=== PATIENT | female | born 1975 | race Caucasian/White ===

== ENCOUNTER → 2019-06-09 08:52 | Outpatient (BNVA) | payer MEDICAID, SELFPAY | PROVIDERS: Family Provider Nurse Practitioner; Visit Provider Social Worker Clinical | DX: F33.2 Major depressive disorder, recurrent severe without psychotic features (principal) | CPT/HCPCS: 90834 ==

== ENCOUNTER → 2019-06-23 09:49 | Outpatient (BNVA) | payer MEDICAID, SELFPAY | PROVIDERS: Family Provider Nurse Practitioner; Visit Provider Counselor Professional | DX: F33.2 Major depressive disorder, recurrent severe without psychotic features (principal) | CPT/HCPCS: 90834 ==

== ENCOUNTER → 2019-07-01 11:09 | Outpatient (BNVA) | payer MEDICAID, SELFPAY | PROVIDERS: Family Provider Nurse Practitioner; Visit Provider Nurse Practitioner | DX: R05 Cough (principal); R50.9 Fever, unspecified; Q32.4 Other congenital malformations of bronchus | CPT/HCPCS: 71046; 85025; 87804 ==

== ENCOUNTER → 2019-07-12 09:50 | Outpatient (BNVA) | payer MEDICAID, SELFPAY | PROVIDERS: Family Provider Nurse Practitioner; Visit Provider Counselor Professional | DX: F43.12 Post-traumatic stress disorder, chronic (principal) | CPT/HCPCS: 90834 ==

== ENCOUNTER → 2019-07-21 08:55 | Outpatient (BNVA) | payer MEDICAID, SELFPAY | PROVIDERS: Family Provider Nurse Practitioner; Visit Provider Counselor Professional | DX: F43.12 Post-traumatic stress disorder, chronic (principal) | CPT/HCPCS: 90834 ==

== ENCOUNTER → 2019-07-28 10:08 | Outpatient (BNVA) | payer MEDICAID, SELFPAY | PROVIDERS: Family Provider Nurse Practitioner; Visit Provider Counselor Professional | DX: F43.12 Post-traumatic stress disorder, chronic (principal) | CPT/HCPCS: 90834 ==

== ENCOUNTER → 2019-08-04 10:36 | Outpatient (BNVA) | payer MEDICAID, SELFPAY | PROVIDERS: Family Provider Nurse Practitioner; PCP Nurse Practitioner; Visit Provider Counselor Professional | DX: F43.12 Post-traumatic stress disorder, chronic (principal) | CPT/HCPCS: 90834 ==

== ENCOUNTER 2019-08-11 08:12 | Outpatient (CLI) | payer MEDICAID, SELFPAY ==
--- NOTE | 2019-08-11 08:15 | CT_ITS ---
WS: [id number] CT CHEST WITHOUT INTRAVENOUS CONTRAST HISTORY: shortness of breath TECHNIQUE: Contiguous axial imaging performed on the thorax. High resolution imaging submitted. Coron al and sagittal reformats are submitted. All CT scans at [facility] use at least one of t hese dose optimization techniques: automated exposure control; mA and/or kV adjustment per patient si ze (includes targeted exams where dose is matched to clinical indication); or iterative reconstructio n. CONTRAST: None DLP: 1500.67 mGycm COMPARISON: 07/12/2018 Lungs and central airway: Mildly hyperexpanded lungs. Motion artifact due to breathing. There is some very mild thickening of the interstitium throughout the lungs bilaterally. Greatest interstitial thi ckening in the periphery RIGHT lower lobe. During expiration is volume loss throughout both lungs. Rosy cency in the LEFT lung also decreases in size. No bronchiectasis. No nodule or pneumonia. Again noted is a lucency involving the superior segment LEFT lower lobe related to air trapping. Pleura: Normal. No pleural effusion. Heart and pericardium: Normal size heart. No pericardial effusion. Mediastinum and patricio: Small mediastinal and hilar lymph nodes. No adenopathy. Vessels: Normal size aortic and pulmonary artery. No coronary artery calcifications. Chest wall and lower neck: No soft tissue masses. Upper abdomen: Marked enlargement of the spleen measuring 20.7 cm in length. Previously described on a CT from 10/09/2013. Visualized liver is negative. No adrenal mass. Osseous structures: No osteoblastic or osteolytic bone disease. Remote rib fractures in the lateral R IGHT mid thorax. CT/CT chest wo con [id number] IMPRESSION: 1. Mild interstitial thickening throughout both lungs, similar to 07/12/2018. P robably related to smoking history. No discrete pneumonia. 2. No significant air trapping. There is still a change in volume of the lucen t portion of the LEFT lung during inspiration and expiration. 3. 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 No interval change. 4. Marked splenomegaly, similar to 2013.
== END 2019-08-11 08:13 | disposition home or self-care (01) ==
LOC: RADWPI 08:18
PROVIDERS: Family Provider Nurse Practitioner; PCP Nurse Practitioner; Visit Provider Internal Medicine Critical Care Medicine
DX: R06.02 Shortness of breath (principal); R16.1 Splenomegaly, not elsewhere classified
CPT/HCPCS: 71250; 90834

== ENCOUNTER → 2019-08-18 08:55 | Outpatient (BNVA) | payer MEDICAID, SELFPAY | PROVIDERS: Family Provider Nurse Practitioner; PCP Nurse Practitioner; Visit Provider Counselor Professional | DX: F43.12 Post-traumatic stress disorder, chronic (principal) | CPT/HCPCS: 90834 ==

== ENCOUNTER → 2019-08-25 08:37 | Outpatient (BNVA) | payer MEDICAID, SELFPAY | PROVIDERS: Family Provider Nurse Practitioner; PCP Nurse Practitioner; Visit Provider Counselor Professional | DX: F43.12 Post-traumatic stress disorder, chronic (principal) | CPT/HCPCS: 90834 ==

== ENCOUNTER → 2019-09-07 08:04 | Outpatient (BNVA) | payer MEDICAID, SELFPAY | PROVIDERS: Family Provider Nurse Practitioner; PCP Nurse Practitioner; Visit Provider Counselor Professional | DX: F43.12 Post-traumatic stress disorder, chronic (principal) | CPT/HCPCS: 90834 ==

== ENCOUNTER → 2019-09-16 08:12 | Outpatient (BNVA) | payer MEDICAID, SELFPAY | PROVIDERS: Family Provider Nurse Practitioner; PCP Nurse Practitioner; Visit Provider Counselor Professional | DX: F43.12 Post-traumatic stress disorder, chronic (principal) | CPT/HCPCS: 90834 ==

== ENCOUNTER → 2019-09-20 08:45 | Outpatient (BNVA) | payer MEDICAID, SELFPAY | PROVIDERS: Family Provider Nurse Practitioner; PCP Nurse Practitioner; Visit Provider Counselor Professional | DX: F43.12 Post-traumatic stress disorder, chronic | CPT/HCPCS: 90834 ==

== ENCOUNTER → 2019-09-28 08:07 | Outpatient (BNVA) | payer MEDICAID, SELFPAY | PROVIDERS: Family Provider Nurse Practitioner; PCP Nurse Practitioner; Visit Provider Counselor Professional | DX: F43.12 Post-traumatic stress disorder, chronic (principal) | CPT/HCPCS: 90834 ==

== ENCOUNTER → 2019-10-05 08:12 | Outpatient (BNVA) | payer MEDICAID, SELFPAY | PROVIDERS: Family Provider Nurse Practitioner; PCP Nurse Practitioner; Visit Provider Counselor Professional | DX: F43.12 Post-traumatic stress disorder, chronic (principal) | CPT/HCPCS: 90832 ==

== ENCOUNTER → 2019-10-12 08:24 | Outpatient (BNVA) | payer MEDICAID, SELFPAY | PROVIDERS: Family Provider Nurse Practitioner; PCP Nurse Practitioner; Visit Provider Counselor Professional | DX: F43.12 Post-traumatic stress disorder, chronic (principal) | CPT/HCPCS: 90834 ==

== ENCOUNTER 2019-10-17 09:06 | Outpatient (CLI) | payer MEDICAID, SELFPAY ==
--- NOTE | 2019-10-17 10:19 | PFTS_ITS ---
Date of Study:10/17/19 Date of Dictation: MECHANICS: Forced vital capacity (FVC) is normal. Forced expiratory volume in one second (FEV1) is normal. FEV1/FVC is normal. FLOW VOLUME LOOP: Hesitation during the performance of forced expiratory maneuver. There is evidence of hesitation LUNG VOLUMES: Total lung capacity (TLC) is normal. Residual volume (RV) is normal. DIFFUSING CAPACITY FOR CARBON MONOXIDE: Normal. INTERPRETATION: The pulmonary function tests are normal. Lung volumes are normal Gas exchange (DLCO) is normal. MTDD
== END 2019-10-17 09:07 | disposition home or self-care (01) ==
LOC: RT 09:10
PROVIDERS: PCP Nurse Practitioner; Visit Provider Internal Medicine Critical Care Medicine
DX: R06.02 Shortness of breath (principal)
CPT/HCPCS: 94010; 94726; 94729

== ENCOUNTER → 2019-10-26 07:58 | Outpatient (BNVA) | payer MEDICAID, SELFPAY | PROVIDERS: PCP Nurse Practitioner; Visit Provider Counselor Professional | DX: F43.12 Post-traumatic stress disorder, chronic (principal) | CPT/HCPCS: 90834 ==

== ENCOUNTER → 2019-11-02 07:47 | Outpatient (BNVA) | payer MEDICAID, SELFPAY | PROVIDERS: PCP Nurse Practitioner; Visit Provider Counselor Professional | DX: F43.12 Post-traumatic stress disorder, chronic (principal) | CPT/HCPCS: 90834 ==

== ENCOUNTER → 2019-11-10 08:35 | Outpatient (BNVA) | payer MEDICAID, SELFPAY | PROVIDERS: PCP Nurse Practitioner; Visit Provider Counselor Professional | DX: F43.12 Post-traumatic stress disorder, chronic (principal) | CPT/HCPCS: 90834 ==

== ENCOUNTER → 2019-11-16 14:09 | Outpatient (BNVA) | payer MEDICAID, SELFPAY | PROVIDERS: PCP Nurse Practitioner; Visit Provider Nurse Practitioner | DX: J06.9 Acute upper respiratory infection, unspecified (principal); Q32.4 Other congenital malformations of bronchus; D58.0 Hereditary spherocytosis; M54.5 Low back pain; Z12.4 Encounter for screening for malignant neoplasm of cervix; Z12.39 Encounter for other screening for malignant neoplasm of breast; E66.9 Obesity, unspecified | CPT/HCPCS: 80053; 80061; 81000; 84443; 85025; 88175 ==

== ENCOUNTER → 2019-11-30 08:13 | Outpatient (BNVA) | payer MEDICAID, SELFPAY | PROVIDERS: PCP Nurse Practitioner; Visit Provider Counselor Professional | DX: F43.12 Post-traumatic stress disorder, chronic (principal) | CPT/HCPCS: 90834 ==

== ENCOUNTER → 2019-12-08 10:06 | Outpatient (BNVA) | payer MEDICAID, SELFPAY | PROVIDERS: PCP Nurse Practitioner; Visit Provider Counselor Professional | DX: F60.3 Borderline personality disorder (principal); F43.12 Post-traumatic stress disorder, chronic | CPT/HCPCS: 90834 ==

== ENCOUNTER → 2019-12-15 08:57 | Outpatient (BNVA) | payer MEDICAID, SELFPAY | PROVIDERS: PCP Nurse Practitioner; Visit Provider Counselor Professional | DX: F60.3 Borderline personality disorder (principal); F43.12 Post-traumatic stress disorder, chronic | CPT/HCPCS: 90834 ==

== ENCOUNTER 2019-12-19 08:47 | Outpatient (CLI) | payer MEDICAID, SELFPAY ==
--- NOTE | 2019-12-19 09:00 | MM_ITS ---
WS: [id number] BILATERAL DIGITAL SCREENING MAMMOGRAPHY WITH CAD CLINICAL INFORMATION: screen breast HISTORY: Screening mammogram. No current complaints. COMPARISON: January 21, 2015 TECHNIQUE: Bilateral CC and MLO views. FINDINGS: Scattered fibroglandular densities bilaterally. No suspicious focal mass, asymmetry, calcifications, or architectural distortion. No evidence of malignancy. Vascular calcification MM/[place] [id number] IMPRESSION: BI-RADS: 2-Benign FOLLOW UP: 1 Year Follow-up Recommend return to annual screening mammography.
== END 2019-12-19 08:48 | disposition home or self-care (01) ==
LOC: RADSHAW 08:48
PROVIDERS: PCP Nurse Practitioner; Visit Provider Nurse Practitioner
DX: Z12.31 Encounter for screening mammogram for malignant neoplasm of breast (principal)
CPT/HCPCS: 77067

== ENCOUNTER → 2019-12-22 08:59 | Outpatient (BNVA) | payer MEDICAID, SELFPAY | PROVIDERS: PCP Nurse Practitioner; Visit Provider Counselor Professional | DX: F43.12 Post-traumatic stress disorder, chronic (principal); F60.3 Borderline personality disorder | CPT/HCPCS: 90834 ==

== ENCOUNTER → 2020-01-04 09:17 | Outpatient (BNVA) | payer MEDICAID, SELFPAY | PROVIDERS: PCP Nurse Practitioner; Visit Provider Counselor Professional | DX: F60.3 Borderline personality disorder (principal); F43.12 Post-traumatic stress disorder, chronic | CPT/HCPCS: 90834 ==

== ENCOUNTER → 2020-01-11 08:54 | Outpatient (BNVA) | payer MEDICAID, SELFPAY | PROVIDERS: PCP Nurse Practitioner; Visit Provider Counselor Professional | DX: F60.3 Borderline personality disorder (principal) | CPT/HCPCS: 90834 ==

== ENCOUNTER → 2020-01-19 07:48 | Outpatient (BNVA) | payer MEDICAID, SELFPAY | PROVIDERS: PCP Nurse Practitioner; Visit Provider Counselor Professional | DX: F43.12 Post-traumatic stress disorder, chronic (principal); F60.3 Borderline personality disorder | CPT/HCPCS: 90834 ==

== ENCOUNTER → 2020-01-24 09:17 | Outpatient (BNVA) | payer MEDICAID, SELFPAY | PROVIDERS: PCP Nurse Practitioner; Visit Provider Counselor Professional | DX: F43.12 Post-traumatic stress disorder, chronic (principal); F60.3 Borderline personality disorder | CPT/HCPCS: 90834 ==

== ENCOUNTER → 2020-01-30 08:33 | Outpatient (BNVA) | payer MEDICAID, SELFPAY | PROVIDERS: PCP Nurse Practitioner; Visit Provider Counselor Professional | DX: F43.12 Post-traumatic stress disorder, chronic (principal); F60.3 Borderline personality disorder | CPT/HCPCS: 90834 ==

== ENCOUNTER → 2020-02-07 08:29 | Outpatient (BNVA) | payer MEDICAID, SELFPAY | PROVIDERS: PCP Nurse Practitioner; Visit Provider Counselor Professional | DX: F43.12 Post-traumatic stress disorder, chronic (principal); F60.3 Borderline personality disorder | CPT/HCPCS: 90834 ==

== ENCOUNTER → 2020-02-14 08:32 | Outpatient (BNVA) | payer MEDICAID, SELFPAY | PROVIDERS: PCP Nurse Practitioner; Visit Provider Counselor Professional | DX: F43.12 Post-traumatic stress disorder, chronic (principal) | CPT/HCPCS: 90834 ==

== ENCOUNTER → 2020-02-21 08:21 | Outpatient (BNVA) | payer MEDICAID, SELFPAY | PROVIDERS: PCP Nurse Practitioner; Visit Provider Counselor Professional | DX: F43.12 Post-traumatic stress disorder, chronic (principal) | CPT/HCPCS: 90834 ==

== ENCOUNTER → 2020-02-28 09:07 | Outpatient (BNVA) | payer MEDICAID, SELFPAY | PROVIDERS: PCP Nurse Practitioner; Visit Provider Counselor Professional | DX: F43.12 Post-traumatic stress disorder, chronic (principal) | CPT/HCPCS: 90834 ==

== ENCOUNTER → 2020-03-08 07:55 | Outpatient (BNVA) | payer MEDICAID, SELFPAY | PROVIDERS: PCP Nurse Practitioner; Visit Provider Counselor Professional | DX: F43.12 Post-traumatic stress disorder, chronic (principal) | CPT/HCPCS: 90834 ==

== ENCOUNTER → 2020-03-13 08:31 | Outpatient (BNVA) | payer MEDICAID, SELFPAY | PROVIDERS: PCP Nurse Practitioner; Visit Provider Counselor Professional | DX: F43.12 Post-traumatic stress disorder, chronic (principal) | CPT/HCPCS: 90834 ==

== ENCOUNTER → 2020-03-22 15:59 | Outpatient (BNVA) | payer MEDICAID, SELFPAY | PROVIDERS: PCP Nurse Practitioner; Visit Provider Nurse Practitioner | DX: Z20.828 Contact with and (suspected) exposure to other viral communicable diseases (principal); J42 Unspecified chronic bronchitis; R09.89 Other specified symptoms and signs involving the circulatory and respiratory systems; J06.9 Acute upper respiratory infection, unspecified | CPT/HCPCS: 80053; 85025; 87635 ==

== ENCOUNTER → 2020-03-27 08:10 | Outpatient (BNVA) | payer MEDICAID, SELFPAY | PROVIDERS: PCP Nurse Practitioner; Visit Provider Counselor Professional | DX: F43.12 Post-traumatic stress disorder, chronic (principal) | CPT/HCPCS: 90834 ==

== ENCOUNTER → 2020-04-30 13:55 | Outpatient (BNVA) | payer MEDICAID, SELFPAY | PROVIDERS: PCP Nurse Practitioner; Visit Provider Nurse Practitioner Family | DX: Z20.828 Contact with and (suspected) exposure to other viral communicable diseases (principal); J06.9 Acute upper respiratory infection, unspecified | CPT/HCPCS: 87635 ==

== ENCOUNTER → 2020-06-12 07:56 | Outpatient (BNVA) | payer MEDICAID, SELFPAY | PROVIDERS: PCP Nurse Practitioner; Visit Provider Counselor Professional | DX: F60.3 Borderline personality disorder (principal) | CPT/HCPCS: 90834 ==

== ENCOUNTER → 2020-07-04 08:09 | Outpatient (BNVA) | payer MEDICAID, SELFPAY | PROVIDERS: PCP Nurse Practitioner; Visit Provider Counselor Professional | DX: F60.3 Borderline personality disorder (principal) | CPT/HCPCS: 90834 ==

== ENCOUNTER → 2020-07-11 08:43 | Outpatient (BNVA) | payer MEDICAID, SELFPAY | PROVIDERS: PCP Nurse Practitioner; Visit Provider Counselor Professional | DX: F60.3 Borderline personality disorder (principal) | CPT/HCPCS: 90834 ==

== ENCOUNTER → 2020-07-18 08:09 | Outpatient (BNVA) | payer MEDICAID, SELFPAY | PROVIDERS: PCP Nurse Practitioner; Visit Provider Counselor Professional | DX: F60.3 Borderline personality disorder (principal) | CPT/HCPCS: 90834 ==

== ENCOUNTER → 2020-08-15 09:48 | Outpatient (BNVA) | payer MEDICAID, SELFPAY | PROVIDERS: PCP Nurse Practitioner; Visit Provider Counselor Professional | DX: F60.3 Borderline personality disorder (principal) | CPT/HCPCS: 90834 ==

== ENCOUNTER 2020-08-27 16:02 | Emergency (ER) | payer MEDICAID, SELFPAY ==
[2020-08-27 16:08] VITALS: BP 126/72; PULSE 98; RESP 16; TEMP 36.8; O2SAT 99; BMI 26.4
--- NOTE | 2020-08-27 16:43 | ED_ITS ---
HPI - Wound/Laceration General: Chief Complaint: Wound/Laceration Stated Complaint: R. Foot Injury Time Seen by Provider: 08/27/20 16:12 Source: patient Mode of arrival: ambulatory Limitations: no limitations History of Present Illness: HPI narrative: Patient is a 44-year-old female who presents to ED today for evaluation of a laceration to her right foot that she sustained just prior to arrival after she cut it on a metal door in her shop. Last tetanus unknown. Bleeding controlled. No other complaints at this time. Onset (ago): hour(s) Extremity Location: Right: foot Place: home Patient tetanus UTD: No Context: accidental Associated symptoms: Reports no associated symptoms; Denies fever(s) Review of Systems Const: Denies: fever(s) Musc: Reports: extremity pain (R foot laceration); Denies: extremity swelling Skin/Breast: Reports: other (laceration R foot) Neuro: Denies: numbness in extremities or sensory changes PFSH ED PFSH: Medical History Chronic post-traumatic stress disorder (PTSD) Congenital spherocytic hemolytic anemia Current smoker Endometriosis Surgical History History of appendectomy History of cholecystectomy History of pelvic surgery endometriosis Family History Other Cancer Diabetes Heart disease Social History Smoking and tobacco status: current every day smoker cigarettes Packs smoked per day: 1 Years cigarettes smoked: 30 Quit status (tobacco): considering quitting Second hand smoke exposure: Yes Smoking risk assessment/counseling performed?: Yes Alcohol intake: never Desire information about alcohol rehabilitation?: No Counseling given: No Desire information about substance/drug rehabilitation?: No Counseling given: No Lives independently: Yes Household members: significant other Housing: House Marital status: Number of children: 1 service: No Current occupational status: unemployed Pets and animals: Yes Pets & animals: cat(s) and dog(s) History of recent travel: No Current gender identity: Female Physical Exam Const: COMMON NORMALS: no acute distress, average body habitus, patient oriented x3, no limitations, healthy appearing, alert and well nourished GENERAL APPEARANCE: cooperative Extremity: NARRATIVE EXTREMITY EXAM: 2.5cm V shaped laceration to R lateral dorsal foot; no bleeding; NV intact Neuro: COMMON NORMALS: patient oriented x3, moves all extremities, no focal motor deficits, no sensory deficits noted and gait normal SENSORIUM/ORIENTATION: Yes alert Skin: NARRATIVE SKIN EXAM: see extremity assessment Procedures Laceration Laceration 1: Site: lower extremity (foot) Side (If applicable): right Size (cm): 2.5 Description: stellate and flap Depth: simple, single layer Local Anesthetic: lidocaine 1% Amount of anesthesia used (mL): 2.0 Pre-repair: wound explored and irrigated extensively Skin layer closed with: vicryl (there were no nylon sutures other than a 6-0 in the ED) Size (cm): 5-0 Number of sutures: 7 Technique: simple, interrupted Course Vital Signs: Vital signs: Vital Signs Temperature 98.2 F 08/27/20 16:08 Pulse Rate 98 08/27/20 16:08 Respiratory Rate 16 08/27/20 16:08 Blood Pressure 126/72 08/27/20 16:08 Pulse Oximetry 99 08/27/20 16:08 MDM - Wound/Laceration MDM Narrative: Medical decision making narrative: Tetanus updated. Repaired with vicryl because there were no nylon sutures larger than a 6-0 in the ED. She was made aware these are technically absorbable but I want them cut out in one week. Wound care discussed. Discharge Plan Discharge Patient Disposition: Home Clinical Impression: Laceration of foot, right Qualifiers: Encounter type: initial encounter Qualified Code(s): S91.311A - Laceration without foreign body, right foot, initial encounter Condition: Stable Prescriptions: No Action fluticasone propionate [Flonase Allergy Relief] 50 mcg/actuation spray,suspension 1 spray intranasal BID 30 Days Qty: 15.8 RF: 6 folic acid 400 mcg tablet 1.6 mg PO DAILY RF: 0 vitamin E (dl, acetate) 400 unit capsule 400 unit PO DAILY RF: 0 potassium 99 mg tablet 99 mg PO DAILY RF: 0 mecobalamin (vitamin B12) 1,000 mcg tablet,disintegrating 1,000 mcg SUBLINGUAL DAILY RF: 0 biotin 1 mg capsule 1 mg PO DAILY RF: 0 cholecalciferol (vitamin D3) 25 mcg (1,000 unit) capsule 25 mcg PO DAILY RF: 0 Spiriva with HandiHaler 18 mcg capsule, w/inhalation device 1 cap INHALATION DAILY Qty: 60 RF: 6 albuterol sulfate 2.5 mg /3 mL (0.083 %) solution for nebulization 2.5 mg inhalation Q4H PRN (Reason: shortness of breath or wheezing) Qty: 75 RF: 2 budesonide [Pulmicort] 0.5 mg/2 mL suspension for nebulization 0.5 mg inhalation BID Qty: 60 RF: 0 albuterol sulfate [ProAir HFA] 90 mcg/actuation HFA aerosol inhaler 2 puff inhalation Q6H PRN (Reason: shortness of breath or wheezing) Qty: 8.5 RF: 1 promethazine-DM 6.25-15 mg/5 mL syrup 5 ml PO Q6H PRN (Reason: cough) Qty: 473 RF: 0 Discharge Orders: Discharge ED (Routine); Ordered 08/27/20 Ordered By: Velia Flores Referrals: Elkin Hurley, [employer] ADMINISTRATOR-[facility] [Primary Care Provider] - Patient Instructions: Suture Care (ED), Laceration (ED) Activity Restrictions/Additional Instructions: Keep wound/laceration clean with warm soap and water twice daily. Monitor for signs of infection such as redness, swelling, increased pain, or drainage. Please seek medical re-evaluation if these occur. As we discussed your sutures are technically absorbable but I want them cut out in 7 days. Coding Level of Care Code ED Professional Wrestler for Andrea Fwd Exam Expanded Problem Focused
[2020-08-27] MEDS: tetanus-dipt-pertussis 0.5 mL SDV IM (17:20)
--- NOTE | 2020-09-03 12:13 | PC.NURSE ---
Patient returned to the ER to have sutures removed. Sutures removed at this time.
== END 2020-08-27 17:24 | disposition home or self-care (01) ==
PROVIDERS: Emergency Provider Physician Assistant; PCP Nurse Practitioner
DX: S91.311A Laceration without foreign body, right foot, initial encounter (principal); W26.8XXA Contact with other sharp object(s), not elsewhere classified, initial encounter; F17.210 Nicotine dependence, cigarettes, uncomplicated; Z23 Encounter for immunization
CPT/HCPCS: 12001; 90471; 90715; 99283

== ENCOUNTER 2020-09-04 09:30 | Outpatient (CLI) | payer MEDICAID, SELFPAY | END 2020-09-04 09:31 | disposition home or self-care (01) | LOC: LAB 07-18 14:51 | PROVIDERS: PCP Nurse Practitioner; Visit Provider Nurse Practitioner | DX: R00.2 Palpitations (principal) | CPT/HCPCS: 80053; 84443; 85025 ==

== ENCOUNTER → 2020-09-12 08:00 | Outpatient (BNVA) | payer MEDICAID, SELFPAY | PROVIDERS: PCP Nurse Practitioner; Visit Provider Counselor Professional | DX: F43.12 Post-traumatic stress disorder, chronic (principal) | CPT/HCPCS: 90834 ==

== ENCOUNTER → 2020-09-13 10:50 | Outpatient (BNVA) | payer MEDICAID, SELFPAY | PROVIDERS: PCP Nurse Practitioner; Visit Provider Nurse Practitioner | DX: L03.115 Cellulitis of right lower limb (principal); L02.611 Cutaneous abscess of right foot | CPT/HCPCS: 73630; 85025 ==

== ENCOUNTER → 2020-09-19 08:01 | Outpatient (BNVA) | payer MEDICAID, SELFPAY | PROVIDERS: PCP Nurse Practitioner; Visit Provider Counselor Professional | DX: F43.12 Post-traumatic stress disorder, chronic (principal) | CPT/HCPCS: 90834 ==

== ENCOUNTER 2020-09-25 10:19 | Outpatient (CLI) | payer MEDICAID, SELFPAY ==
--- NOTE | 2020-09-26 12:17 | ONC CON_ITS ---
Dr. Espinosa New Patient Note Patient: Tabitha Diamond Unit #: [id number]: 1975 Dicatated By: Gus Espinosa M.D.Date of Visit: September 25, 2020 Onc MED New Patient/Consult Referring Physician: Lee Ann Pollard Chief Complaint: Hereditary spherocytosis. History of Present Illness: This is a 44-year-old woman with hereditary spherocytosis. She apparently was diagnosed with the hereditary spherocytosis in infancy, as her father and paternal grandfather were already known to be affected. She has been managed adequately with folate supplementation, maintaining hemoglobin levels in the range of 9 to 10 g. However, she was seen here by Dr. Garcia in December 2011 when her hemoglobin had dropped to 8.3 g. At the time she also had mild hyperbilirubinemia. According to Dr. Garcia's notes she had not been taking her folate on a consistent basis. During subsequent follow-up, her hemoglobin recovered to baseline and it has since then remained stable in that range of 9 to 10 g. At some point, I think around 2013, she did require cholecystectomy. She has never been transfused. She is seen now in regard to the spherocytosis. On her CBC from 09/13/2020 her hemoglobin had declined somewhat, to 9.7 g compared to 10.4 g earlier in the month and to 11.6 g in March 2020. Her red cell indices were normal. The white blood cell count was slightly elevated at 11,300 and the platelet count was normal at 261,000. She has been faithful with her folic acid supplementation, currently taking 4 tablets of an 800 mcg [id number] preparation daily. She also has been taking vitamin E and biotin supplements daily. She complains that her energy is not very good. Her activity recently has been limited due to a right foot injury, but she otherwise is able to do light work. Her ECOG score is 1. Her appetite is not particularly good. She says she eats only once a day, but she has gained weight. She does not have fever, night sweats, or hot flashes. She does complain of shortness of breath with activity and with lying down. She has been seeing Dr. Pablo. 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 She has on treatment with albuterol, tiotropium bromide, and budesonide. She also reports having chronic sinus congestion/drainage and chronic cough. She does not complain of chest pain. She sometimes has nausea. She has no other GI complaints. She has a history of urinary tract infections, and she also has some mild stress incontinence. She has chronic lower back pain. She has migraine headaches. She says her hands tend to go to sleep easily. She has no other focal neurologic symptoms. Past Medical History: Her medical history includes congenital segmental emphysema syndrome, endometriosis, hereditary spherocytosis, and post traumatic stress disorder/depression. Past Surgical History: Her surgical/procedural history includes cholecystectomy, lysis of adhesions, right ovaian biopsy which was benign in 2009, and appendectomy in 1995. Medications: Albuterol Sulfate 1 Inhalation (of (2.5 mg/3ml) 0.083%) Nebulization solution Inhalation q 4 hours, Albuterol Sulfate (sensor) 2 Puff(s) (of 108 (90 base) mcg/act) Aerosol Powder, Breath Activated Inhalation q 6 hours PRN, Biotin 1 (1 mg) Capsule Oral daily, Budesonide 1 Inhalation (of 0.5 mg/2mL) Suspension Inhalation b.i.d., Flonase 1 Bath(s) (of 50 mcg/act) Suspension Nasal b.i.d., Folic Acid 1 (800 mcg) Tablet Oral daily, Promethazine-DM 5 mL (of 6.25-15 mg/5mL) Syrup Oral q 6 hours, Tiotropium [place] Monohydrate 1 Inhalation (of 18 mcg) Capsule Inhalation daily, Vitamin E 1 (400 Units) Capsule Oral daily Allergies: Cephalexin, Erythromycin, and Penicillin. Social History: Ms. Diamond is . She has 1 adopted child. She is currently not able to work. She had previously worked in a [employer]. She has a history of smoking 1 pack of cigarettes daily beginning at age 14. She had stopped smoking for a period of 9 years, but she then started again and smoked up to 3 packs of cigarettes daily. She now smokes 1/2 pack/day or less. She currently does not drink alcohol. She has had some alcohol use in the past, but never heavy. Family History: Her paternal grandfather, her father, a half-brother, and a half-sister all have hereditary spherocytosis. Father is still living at age 63. She does not know about her mother. Her paternal grandfather also had heart disease and of pancreatic cancer. Her paternal grandmother and maternal grandmother both had breast cancer, and her maternal grandfather had heart disease. Review Of Symptoms: Constitutional - Her energy is not good. She has been feeling significantly more tired lately. She has activity restrictions related to an injury to her right foot that occurred about 1 month ago. Prior to that she was doing moderate to heavy work around the house and in her woodshop. Her appetite is good and her weight is up some. No fever, night sweats, or hot flashes. ECOG score is 1, Eyes - She has had some decline in visual acuity, ENMT - She has some hearing loss. No tinnitus. She always has sinus congestion/drainage. No mouth sores. No sore throat or difficulty swallowing, Hematologic/Lymphatic - She bruises and bleeds easily, Respiratory - She gets short of breath with activity. She uses several respiratory medications daily and her lung condition is managed with Dr. Pablo. She has a chronic cough. No pleuritic pain or hemoptysis, Cardiovascular - No angina pain. No palpitations, Gastrointestinal - She has occasional nausea. No vomiting. No heartburn or acid reflux. No diarrhea or constipation. No blood in the stool or black stools, Genitourinary (F) - No dysuria or hematuria. No urinary frequency. No urgency or incontinence. Her menstrual periods are irregular, Musculoskeletal - She has pain in her right foot from a healing laceration. She also has chronic pain in her lower back, Integumentary - No skin eruption, Neurologic - She has chronic migraines. No dizziness. She has numbness and tingling in her hands. No other focal neurologic symptoms, Psychiatric - She has anxiety and depression. She has been seeing a therapy weekly to manage this. She does not sleep well. Vital Signs: Performed on September 25, 2020 11:24: 5, 2, 29.32, 1.70 sq.m, 61.00 in, 99 %, 66 /min, 18 /min, 104/54 mm(hg), 97.6 F (LOW), and 155.2 lbs (LOW). Physical Examination: Constitutional - She appears to be in good general health, Eyes - Sclerae nonicteric. Conjunctivae clear, ENMT - No lesions noted in the oral cavity, Neck - No mass or thyromegaly, Hematologic/Lymphatic - No cervical, clavicular, or axillary adenopathy, Respiratory - Lungs sound clear, Cardiovascular - Heart rhythm is regular. There is no murmur, gallop, or rub noted, Abdomen - Soft and non-tender. Liver is not enlarged. Spleen is palpable on inspiration just below the costal margin laterally. There is no abdominal mass or ascites noted and there is no inguinal adenopathy, Back/Spine - No spine or CVA tenderness noted, Extremities - No edema. Pedal pulses are palpable bilaterally, Integumentary - There is a healing laceration on the dorsum of the right foot. There are no suspicious skin lesions noted, Neurologic - No focal neurologic deficits noted. Problem List: 1. Hereditary spherocytosis. 2. 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 3. Endometriosis. 4. Posttraumatic stress disorder/depression. Problems Addressed with this Encounter and Plan: Patient with hereditary spherocytosis. She has associated splenomegaly. While there has been some variation in her hemoglobin levels, they have generally remained adequate in the range of 9 to 11 g with folate supplementation. She has been previously vaccinated in the event that she would eventually require splenectomy, but thus far there has been no indication for it. As such, she will just continue with her current folate supplementation. At least initially I will plan to monitor her at 3-month intervals. Signed By: Gus Espinosa M.D. <<Signature on File>>
== END 2020-09-25 10:20 | disposition home or self-care (01) ==
LOC: ONCMED 10:22
PROVIDERS: PCP Nurse Practitioner; Visit Provider Internal Medicine Medical Oncology
DX: D58.0 Hereditary spherocytosis (principal); J43.0 Unilateral pulmonary emphysema [MacLeod's syndrome]; N80.9 Endometriosis, unspecified; F43.10 Post-traumatic stress disorder, unspecified; F32.9 Major depressive disorder, single episode, unspecified; Z79.899 Other long term (current) drug therapy
CPT/HCPCS: 99203